=== PATIENT | female | born 1975 | race Caucasian/White ===

== ENCOUNTER 2018-01-12 13:05 | Emergency (ER) | payer OTHER, MEDICAID ==
[~2018-01-12] VITALS: Ht 167.6 cm; Wt 85.7 kg
[2018-01-12 13:08] VITALS: BP 139/83
[2018-01-12 13:40] LABS: ALBUMIN 3.8 g/dL (3.4-5.0); ANION GAP 7 mmol/L (5-15); CALCIUM 8.9 mg/dL (8.5-10.1); CHLORIDE 105 mmol/L (98-107); CREATININE 0.65 mg/dL (0.55-1.02); MEAN CORPUSCULAR VOLUME 92.4 fL (80-100); RED BLOOD COUNT 4.54 x10^6/uL (3.82-5.3)
[2018-01-12 13:41] LABS: BASOPHILS # (AUTO) 0.04 x10^3/uL (0-0.1); BASOPHILS % (AUTO) 0 % (0-1); EOSINOPHILS # (AUTO) 0.42 x10^3/uL (0-0.4); EOSINOPHILS % (AUTO) 4 % (1-7); LYMPHOCYTES # (AUTO) 2.88 x10^3/uL (1-3.4); LYMPHOCYTES % (AUTO) 28 % (22-44); MD NO; MEAN CORPUSCULAR HGB CONC 33.6 g/dL (32.4-35.8); MEAN PLATELET VOLUME 8.4 fL (7.4-10.4); MONOCYTES # (AUTO) 0.75 x10^3/uL (0.2-0.8); NEUTROPHILS # (AUTO) 6.15 x10^3/uL (1.8-6.8); NEUTROPHILS % (AUTO) 60 % (42-75); PLATELET COUNT 515 x10^3/uL (130-400); RED CELL DISTRIBUTION WIDTH 14.9 % (9.6-15.2)
[2018-01-12 13:42] LABS: MONOCYTES % (AUTO) 8 % (2-9)
[2018-01-12] MEDS ORDERED: OXYcodone/APAP 10/325MG TABLET PO ONE (15:30)
[2018-01-12] MEDS ORDERED: OXYcodone/APAP 10/325MG TABLET ONE (15:47)
[2018-01-12 15:59] LABS: MICROSCOPIC AUTO
[2018-01-12 16:06] LABS: CULTURE INDICATED? YES
[2018-01-12 16:09] LABS: HCG UR SG 1.011 (1.003-1.030)
== END 2018-01-12 16:36 | disposition home or self-care (01) ==
LOC: ED 15:05
DX: M54.41 Lumbago with sciatica, right side (principal); N30.00 Acute cystitis without hematuria
CPT/HCPCS: 36415; 80048; 81001; 81025; 82040; 85025; 87086; 99283; J7512